=== PATIENT | female | born 1955 | race Caucasian/White ===

== ENCOUNTER 2019-11-10 10:32 | Outpatient (CLI) | payer MEDICARE, OTHER ==
--- NOTE | 2019-11-10 11:35 | ULT ---
Pelvic sonogram transabdominal and transvaginal imaging with duplex evaluation HISTORY: Pelvic pain. Findings urinary bladder is incompletely distended. Uterus has a heterogeneous echotexture and is 5.1 cm in length. Endometrium is 0.3 cm. Minimal free fluid. Right ovary is 1.5 cm length and left is 1.2 cm. Each has a normal appearance with good color and spe ctral Doppler flow. IMPRESSION : No abnormalities are demonstrated.
== END 2019-11-10 10:33 | disposition home or self-care (01) ==
LOC: BICULT 10:32
PROVIDERS: ATTEND Family Medicine
DX: R10.2 Pelvic and perineal pain (principal)
CPT/HCPCS: 76856

== ENCOUNTER 2020-03-01 12:52 | Observation (INO) | payer MEDICARE, OTHER ==
[2020-03-01] MEDS ORDERED: Albuterol 200 PUFF (6.7GM INHALER) INH PRN (15:02)
[2020-03-01 15:07] VITALS: BMI 34.0
[2020-03-01 16:20] LABS: Troponin I 0.022 ng/mL (< 0.028)
--- NOTE | 2020-03-01 17:16 | PDOC.HHP ---
Hospitalist HPI - History of Present Illness chest pain History of Present Illness: Ms. Mcmanus is a 64-year-old female with a past medical history of ulcerative colitis, obstructive sleep apnea, chronic bronchitis, anxiety depression, type 2 diabetes mellitus, remote history of breast cancer status post resection/radiation, GERD, hypertension who presented to [facility] for 2 weeks of shortness of breath associated with chest tightness. Patient reports that she presented to the ED because she is unable to secure an appointment with her primary care provider and that she noticed over the past 2 weeks she has been fatigued, and dyspneic on exertion walking short distances around her house. Chest tightness will last for minutes then resolve. Worse with exertion, none at rest. No changes with position. Patient reports family history of significant cardiac disease in her father with multiple MIs, and her brother who passed at age 58 of an FL. Patient reports history of smoking, which she quit 20 years ago. No history of prior cardiac conditions. Patient presented to [facility] where EKG showed nonspecific changes, initial troponin 0 0.019, BNP 41.2, BUN/CR 26/1.10. WBC 12.2, H/H 10.1/30.7, platelet 98. Chest x-ray with no acute abnormalities. Patient given ASA and transferred to hospital service at [facility]. Hospitalist ROS - Review of Systems Constitutional: reports: weakness, malaise. denies: fever, chills, sweats, other Eyes: denies: pain, vision change, conjunctivae inflammation, eyelid inflammation, redness, other ENT: denies: ear pain, ear discharge, nose pain, nose discharge, nose congestion, mouth pain, mouth swelling, throat pain, throat swelling, other Respiratory: reports: shortness of breath, SOB with excertion. denies: cough, dry, hemoptysis, pleuritic pain, sputum, wheezing, other Cardiovascular: reports: chest pain, orthopnea. denies: palpitations, paroxysmal noc. dyspnea, edema, light headedness Gastrointestinal: denies: nausea, vomiting, abdominal pain, diarrhea, constipation, melena, hematochezia, other Genitourinary: denies: dysuria, frequency, incontinence, hematuria, retention, other Musculoskeletal: denies: neck pain, shoulder pain, arm pain, back pain, hand pain, leg pain, foot pain, other Skin: denies: rash, lesions, prakash, bruising, other Neurological: denies: weakness, numbness, incoordination, change in speech, confusion, seizures, other - Medication Medications: Home medications include: Metoprolol Affect sore Losartan Sulfasalazine Lansoprazole Cetirizine Bisoprolol hctz Ascorbic acid Cyclobenzaprine Atorvastatin Fluticasone No known drug allergies Hospitalist History - Past Medical History Other Medical History: Past medical history includes Hypertension Diabetes Ulcerative colitis Obstructive sleep apnea Anxiety/depression Breast cancer, remote - Past Surgical History Other Surgical History: Past surgical history includes Lumpectomy Bilateral total knee replacements Spine surgery Bilateral corneal replacements - Family History Other Family History: Family history significant for cardiac disease in father with multiple MIs, and brother who passed of FL at age 58. - Social History Smoking Status: Former smoker Tobacco Type: cigarettes Alcohol: reports: Rare Drugs: reports: none Living Situation: With Family Activity level: independent ambulation - Exam General Appearance: NAD, awake alert Eye: PERRL, anicteric sclera ENT: normocephalic atraumatic, no oropharyngeal lesions, moist mucosa Neck: supple, symmetric, no JVD, no thyromegaly, no lymphadenopathy, no carotid bruit Heart: RRR, no murmur, no gallops, no rubs, normal peripheral pulses Respiratory: CTAB, no wheezes, no rales, no ronchi, normal chest expansion, no tachypnea, normal percussion Gastrointestinal: soft, non-tender, non-distended, normal bowel sounds, no palpable masses, no hepatomegaly, no splenomegaly, no bruit Extremities: no cyanosis, no clubbing, no edema Skin: normal turgor, no lesions, no rashes Neurological: cranial nerve grossly intact, normal sensation to touch, no weakness, no focal deficits, no new deficit Musculoskeletal: normal tone, normal strength, no muscle wasting Psychiatric: normal affect, normal behavior, A&O x 3 Hospitalist Results - Labs Result Diagrams: 03/02/20 04:48 03/02/20 04:48 Lab results: Troponin I 0.022 ng/mL (< 0.028) 03/01/20 15:46 Hospitalist H&P A/P - Plan Plan: Chest pain 64-year-old female with possible history of breast cancer, UC, type 2 diabetes mellitus, COPD who presents with 2 weeks of intermittent chest tightness associated with shortness of breath. Patient denies radiation, changes with movement. Initial EKG showed nonischemic changes, initial troponin 0 0.019. BNP 41.2. Chest x-ray no acute findings. Given patient's former smoking history, significant family history, age, gender, and history of type 2 diabetes will admit for chest pain rule out. Patient reports her most recent stress test was more than 5 years ago. Received ASA in ED. We will keep patient n.p.o. for stress test in a.m. Plan Trend troponin Telemetry monitoring Stress test in a.m., n.p.o. at midnight -ASA, statin Shortness of breath Patient reports 2-week history of dyspnea on exertion associated with fatigue and malaise. Patient reports she was tested for Covid by her primary care provider approximately 2 weeks ago and was negative. She denies any cough or upper respiratory symptoms. Denies any known exposure to Covid. Chest x-ray with no acute findings. White blood cell mildly elevated at 12.2. Patient received DuoNeb treatment at [facility] which she reports improved her shortness of breath/chest pain. Patient currently comfortable in bed saturating 97% on room air. Plan DuoNebs as needed Covid pending, RVP Closely monitor respiratory status Anemia Patient anemic on presentation to 10.1. Prior hemoglobin in October 20192013.5. Patient denies any blood in her stools or black or tarry stools. Reports recent colonoscopy approximately 2 months ago, which was normal, and plans for possible EGD secondary to GERD. Patient denies any dizziness, lightheadedness. Denies any new medications. Plan Trend H&H Fecal occult blood testing Iron studies, vitamin B12, folate Smear review Thrombocytopenia Patient thrombocytopenic to 98. Platelet count formally 207 in October 2019. Denies any new medications. Does take sulfasalazine for her ulcerative colitis which she has taken for decades. Denies any bruising, abnormal bleeding events/mucocutaneous bleeding. Denies fever, chills, night-sweats or unexplained weight loss. Plan Smear review -TSH, PT/INR Continue to monitor COPD History of COPD not on home O2. Does have home albuterol inhaler. Continue plan as above under shortness of breath. Type 2 diabetes mellitus History of type 2 diabetes on metformin. Will hold Metformin during admission and monitor blood sugars. Plan [facility] glucose checks -Hypoglycemia protocol as needed Hypertension Continue home bisoprolol/hydrochlorothiazide Hyperlipidemia Continue home atorvastatin Ulcerative colitis Continue home sulfasalazine. DVT prophylaxis: SCDs Full code Case discussed with attending physician, Dr. Matt.
[2020-03-01] MEDS ORDERED: Acetaminophen 325 MG TAB PO PRN (17:53)
[2020-03-01] MEDS ORDERED: Dextrose 5% in Water 1,000 ML IV PRN (17:59)
[2020-03-01] MEDS ORDERED: Insulin Regular 300 UNITS/3 ML VIAL SC PRN (17:59)
[2020-03-01] MEDS ORDERED: Dextrose 50% Abboject 50 ML SYRINGE SLOW IVP PRN (17:59)
[2020-03-01 18:38] LABS: Magnesium 1.8 mg/dL (1.6-2.6)
[2020-03-01 19:02] LABS: Anisocytosis MODERATE=16-30 cells (100X) (0-5/hpf); Band 24 % (5-11); Hemoglobin 8.9 g/dL (12.0-16.0); Lymphocytes 37 % (21-51); MDiff Complete? YES; Macrocytosis SLIGHT = 6-15 cells (100X) (0-5/hpf); Mean Corpuscular HGB CONC 34.4 g/dL (32.0-36.0); Mean Corpuscular Hemoglobin 36.5 pg (27.0-31.0); Mean Platelet Volume 6.9 fL (7.4-10.4); Metamyelocyte 1 % (0-0); Monocytes 9 % (0-10); Myelocyte 1 % (0-0); Neutrophil 26 % (42-75); Nucleated RBC 2 % (0); Platelet Count 86 thou/uL (130-400); Platelet Morphology Comment Appears Decreased; Polychromasia MODERATE = 3-4 cells (100X) (0-2/hpf); RBC Distribution Width 15.7 % (11.5-14.5); Reactive Lymphocytes 2 % (0-10); Red Blood Cell (RBC) Count 2.43 mill/uL (4.20-5.40); Tear Drops SLIGHT = 2-5 cells (100X) (0-1/hpf)
[2020-03-01 19:39] LABS: Troponin I 0.017 ng/mL (< 0.028)
[2020-03-01] MEDS ORDERED: Atorvastatin Calcium 40 MG TAB PO SCH (21:00)
[2020-03-01] MEDS: sulfaSALAzine 500 MG TAB PO SCH (21:06)
[2020-03-01] MEDS ORDERED: Losartan 25 MG TAB PO SCH (23:15)
[2020-03-02 05:44] LABS: ALT (SGPT) 50 U/L (8-55); AST (SGOT) 31 U/L (5-34); Albumin 4.1 g/dL (3.4-4.8); Alkaline Phosphatase 61 U/L (40-110); Anion Gap 15 mmol/L (10-20); BUN (Urea Nitrogen) 20 mg/dL (9.8-20.1); Calc. Creatinine Clearance 90 mL/min (70-130); Calcium 9.2 mg/dL (7.8-10.44); Carbon Dioxide 23 mmol/L (23-31); Chloride 106 mmol/L (98-107); Estimated GFR-MDRD 58; Globulin 2.6 g/dL (2.4-3.5); Glucose 108 mg/dL (80-115); Potassium 3.8 mmol/L (3.5-5.1); Protein, Total 6.7 g/dL (6.0-8.3); Sodium 140 mmol/L (136-145)
[2020-03-02 06:02] LABS: Anisocytosis SLIGHT = 6-15 cells (100X) (0-5/hpf); Band 17 % (5-11); Eosinophils 3 % (0-10); Hemoglobin 9.6 g/dL (12.0-16.0); Lymphocytes 26 % (21-51); MDiff Complete? YES; Mean Corpuscular Hemoglobin 36.2 pg (27.0-31.0); Mean Platelet Volume 7.2 fL (7.4-10.4); Monocytes 13 % (0-10); Myelocyte 3 % (0-0); Neutrophil 38 % (42-75); Nucleated RBC 6 % (0); Platelet Count 90 thou/uL (130-400); Platelet Morphology Comment Appears Decreased; RBC Distribution Width 15.8 % (11.5-14.5); Red Blood Cell (RBC) Count 2.66 mill/uL (4.20-5.40); White Blood Cell (WBC) Count 11.5 thou/uL (4.8-10.8)
[2020-03-02] MEDS: Bisoprolol Fumarate/HCTZ 5 mg/6.25 mg Tablet PO SCH ×2 (07:38→11:54)
[2020-03-02] MEDS: sulfaSALAzine 500 MG TAB PO SCH (07:50)
[2020-03-02] MEDS ORDERED: FLU VACC QS2020-21(65YR UP)/PF 240 MCG/0.7 ML SYRINGE IM ONE (09:00)
[2020-03-02] MEDS ORDERED: Losartan 25 MG TAB PO SCH ×2 (09:00→21:00)
[2020-03-02] MEDS ORDERED: Loratadine 10 MG TAB PO SCH (09:00)
[2020-03-02] MEDS ORDERED: Fluticasone Propionate Nasal Spray 16 gm Bottle NASAL SCH (09:00)
[2020-03-02] MEDS ORDERED: Venlafaxine HCl XR 150 MG CAP PO SCH (09:00)
[2020-03-02] MEDS ORDERED: Aspirin 325 mg Enteric Coated Tablet PO SCH (09:00)
[2020-03-02] MEDS ORDERED: Regadenoson 0.4 MG/5 ML SYRINGE ONE (09:39)
[2020-03-02 11:08] LABS: SARS-CoV-2 MS2 Positive; SARS-CoV-2 N Gene Negative; SARS-CoV-2 S Gene Negative; SARS-CoV-2 by NAA Not Detected (NotDetected); SARS-CoV-2 orf1ab Negative
--- NOTE | 2020-03-02 13:02 | NM ---
Exam: Nuclear medicine cardiac stress HISTORY: Chest pain Comparison none TECHNIQUE: Patient was ministered 32.10 mCi of technetium 99m sestamibi. FINDINGS: Homogeneous distribution of the radiotracer in the left ventricle End-diastolic volume is 115 mL End-systolic volume is 50 mL Cardiac gating: Normal wall motion and thickening. 56% ejection fraction IMPRESSION: 1. Homogeneous distribution of the radiotracer left ventricle. 2. 56% ejection fraction.
[2020-03-02 15:50] VITALS: BP 105/58; TEMP 98.5
--- NOTE | 2020-03-02 19:33 | PDOC.DS.DS ---
Provider - Provider Date of Admission: 03/01/20 12:52 Admitting Provider: Michael Matt MD Primary Care Physician: Bailee Lagos DO Course - Hospital Course Hospital Course: Patient is a 64-year-old female who presented to the hospital with some shortness of breath. She had some chest tightness associated with this. This had been going on for several days. Her initial work-up showed no evidence of acute ischemia. Troponin was negative. She was subsequently placed in observation status. She had serial cardiac isoenzymes that were negative. She underwent a stress test which showed no evidence of reversible ischemia and had a normal ejection fraction. She reported that she had significant improvement overall with the use of the nebulizers. She thought they were very helpful. She did have a [id number] smoking history. Patient was also noted to have some blood dyscrasias. She had an elevated white count that was minimal. She was also anemic and thrombocytopenic. She has a history of ulcerative colitis and was on sulfasalazine for that. I discussed the case with Dr. Cruz her hardwood floor finisher. We will stop the sulfasalazine and she will follow her up in her office next week. Of note her Covid and respiratory viral panel were all negative. Resuscitation Status: 03/01/20 17:53 Resuscitation Status Routine Co-Sign Provider: Resuscitation Status: FULL: Full Resuscitation - Labs Lab Results: 03/02/20 04:48 03/02/20 04:48 Abnormal Lab Results - Last 48 hrs 03/01/20 17:57: % Saturation 54 H 03/01/20 18:09: WBC 11.0 H, RBC 2.43 L, Hgb 8.9 L, Hct 25.8 L, MCV 106.0 H, MCH 36.5 H, RDW 15.7 H, Plt Count 86 L, MPV 6.9 L, Neutrophils % (Manual) 26 L, Band Neuts % (Manual) 24 H, Metamyelocytes % (Man) 1 H, Myelocytes % 1 H, Nucleated RBCs # (Man) 2 H, Plt Morphology Comment Appears Decreased L, Polychromasia MODERATE = 3-4 cells H, Anisocytosis MODERATE=16-30 cells H 03/02/20 04:48: WBC 11.5 H, RBC 2.66 L, Hgb 9.6 L, Hct 28.3 L, MCV 106.0 H, MCH 36.2 H, RDW 15.8 H, Plt Count 90 L, MPV 7.2 L, Neutrophils % (Manual) 38 L, Band Neuts % (Manual) 17 H, Monocytes % (Manual) 13 H, Myelocytes % 3 H, Nucleated RBCs # (Man) 6 H, Plt Morphology Comment Appears Decreased L Microbiology - Entire Visit 03/01/20 23:30 Nasopharyngeal swab Respiratory Virus Panel (PCR) - Final - Physical Exam Vitals: Vital Signs (12 hours) Temp Pulse Resp BP Pulse Ox 03/02/20 15:43 98.5 F 72 16 105/58 L 96 03/02/20 13:41 65 20 98 03/02/20 12:00 98.2 F 66 18 143/70 H 98 Weight Weight 217 lb 4.8 oz Physical Exam: The patient was seen and examined on the day of discharge. Problem - Problem (1) Dyspnea Code(s): R06.00 - DYSPNEA, UNSPECIFIED Status: Acute (2) COPD (chronic obstructive pulmonary disease) Status: Acute (3) Chest pain Code(s): R07.9 - CHEST PAIN, UNSPECIFIED Status: Acute (4) Ulcerative colitis Code(s): K51.90 - ULCERATIVE COLITIS, UNSPECIFIED, WITHOUT COMPLICATIONS Status: Acute (5) Anemia Code(s): D64.9 - ANEMIA, UNSPECIFIED Status: Acute (6) Thrombocytopenia Code(s): D69.6 - THROMBOCYTOPENIA, UNSPECIFIED Status: Acute (7) Diabetes mellitus Code(s): E11.9 - TYPE 2 DIABETES MELLITUS WITHOUT COMPLICATIONS Status: Acute (8) Hypertension Code(s): I10 - ESSENTIAL (PRIMARY) HYPERTENSION Status: Acute Plan - Discharge Medications Prescriptions: RX: Ipratropium/Albuterol Sulfate [DuoNeb] 3 ml NEB [id number] #30 neb RX: Nebulizer [Compact Compressor Nebulizer] 1 each ASDIR #1 kit Home Medications: Medication Instructions Recorded Confirmed Type RX: Ascorbic Acid [Vitamin C] 500 mg PO DAILY 03/01/20 03/01/20 History RX: Atorvastatin Calcium [Lipitor] 40 mg PO HS 03/01/20 03/01/20 History RX: Bisoprolol/Hydrochlorothiazide 1 tab PO DAILY 03/01/20 03/01/20 History [Bisoprolol-Hctz 5-6.25 mg Tab] RX: Cetirizine HCl [Zyrtec] 10 mg PO DAILY 03/01/20 03/01/20 History RX: Cyclobenzaprine [Flexeril] 10 mg PO PRN PRN 03/01/20 03/01/20 History RX: Fluticasone Propionate 1 spray EA NARE DAILY PRN 03/01/20 03/01/20 History [Flonase Nasal [place]] RX: HYDROcodone Bit/APAP 10325 1 tab PO BID 03/01/20 03/01/20 History [[place]] RX: Ketotifen Fumarate [[place]] 1 drop EA EYE PRN PRN 03/01/20 03/01/20 History RX: Lansoprazole 30 mg PO DAILY 03/01/20 03/01/20 History RX: Losartan [Cozaar] 25 mg PO HS 03/01/20 03/01/20 History RX: Multivit-Min/FA/Lycopen/Lutein 1 tablet PO DAILY 03/01/20 03/01/20 History [Complete Multi 50+ Tablet] RX: Polyvinyl Alcohol/Povidone 1 drop EA EYE PRN PRN 03/01/20 03/01/20 History [[place] Eye Drop] RX: Psyllium Husk [Metamucil] 5 tab PO DAILY 03/01/20 03/01/20 History RX: Venlafaxine HCl [Effexor XR] 150 mg PO DAILY 03/01/20 03/01/20 History RX: metFORMIN [Glucophage] 500 mg PO BID-WM 03/01/20 03/01/20 History RX: Aspirin [Ecotrin Regular 325 mg PO DAILY tab 03/02/20 Rx Strength] RX: Ipratropium/Albuterol Sulfate 3 ml NEB [id number] #30 neb 03/02/20 Rx [DuoNeb] RX: Nebulizer [Compact Compressor 1 each MC ASDIR #1 kit 03/02/20 Rx Nebulizer] Allergies: No Known Allergies Allergy (Verified 03/01/20 16:57) - Discharge Instructions Activity:: Activity as Tolerated Nourishment:: No Restrictions - Follow up Plan Referrals: Lauren Cruz MD [Active] - 7 Days (Dr. Cruz's office will call to arrange an appointment next week. ) Bailee Lagos DO [Primary Care Provider] - 7 Days Disposition: HOME Quality - Care Measures CORE MEASURES:: N/A
== END 2020-03-02 18:30 | disposition home or self-care (01) ==
LOC: 2SW 12:52
PROVIDERS: ADMIT Student in an Organized Health Care Education/Training Program; ATTEND Internal Medicine
DX: R07.89 Other chest pain (principal); R06.02 Shortness of breath; J44.9 Chronic obstructive pulmonary disease, unspecified; E11.9 Type 2 diabetes mellitus without complications; I10 Essential (primary) hypertension; K51.90 Ulcerative colitis, unspecified, without complications; D64.9 Anemia, unspecified; D69.6 Thrombocytopenia, unspecified; E78.5 Hyperlipidemia, unspecified; Z20.828 Contact with and (suspected) exposure to other viral communicable diseases; Z79.84 Long term (current) use of oral hypoglycemic drugs; Z79.899 Other long term (current) drug therapy
CPT/HCPCS: 78452; 80053; 82607; 82746; 82962 ×2; 83540; 83550; 83735; 84443; 84484 ×3; 85007; 85025; 85027; 87633; 93017; 94640 ×3; 94760; A9500; G0378 ×2; U0003; 36415; 36416; 85060; 87635; J2785; J7620

== ENCOUNTER 2020-07-15 20:13 | Emergency (ER) | payer MEDICARE, OTHER ==
[~2020-07-15 20:13] MED LIST: Iopamidol-370 76% 500 ML 1 ML ONE
[2020-07-15 21:18] LABS: Anion Gap 16 mmol/L (10-20); BUN (Urea Nitrogen) 17 mg/dL (9.8-20.1); Calc. Creatinine Clearance 0 mL/min (70-130); Carbon Dioxide 24 mmol/L (23-31); Chloride 103 mmol/L (98-107); Glucose 177 mg/dL (80-115); Potassium 3.3 mmol/L (3.5-5.1); Sodium 140 mmol/L (136-145)
[2020-07-15 22:09] LABS: Band 1 % (5-11); Eosinophils 1 % (0-10); Hemoglobin 10.2 g/dL (12.0-16.0); Lymphocytes 9 % (21-51); MDiff Complete? YES; Mean Corpuscular Hemoglobin 37.6 pg (27.0-31.0); Mean Platelet Volume 4.3 fL (7.4-10.4); Metamyelocyte 2 % (0-0); Monocytes 12 % (0-10); Myelocyte 4 % (0-0); Neutrophil 4 % (42-75); Nucleated RBC 1 % (0); Platelet Count 71 thou/uL (130-400); Platelet Morphology Comment Appears Decreased; RBC Distribution Width 12.8 % (11.5-14.5); Reactive Lymphocytes 3 % (0-10); Red Blood Cell (RBC) Count 2.72 mill/uL (4.20-5.40); Reflex for Review?? YES
[2020-07-15 22:32] LABS: ALT (SGPT) 33 U/L (8-55); AST (SGOT) 35 U/L (5-34); Albumin 4.1 g/dL (3.4-4.8); Alkaline Phosphatase 68 U/L (40-110); Bilirubin, Direct 0.3 mg/dL (0.1-0.3); Bilirubin, Total 0.5 mg/dL (0.2-1.2); Protein, Total 6.5 g/dL (5.8-8.1); Uric Acid 9.4 mg/dL (2.6-6.0)
[2020-07-15 22:39] LABS: Magnesium 1.3 mg/dL (1.6-2.6); Phosphorus 3.4 mg/dL (2.3-4.7)
[2020-07-15 22:46] LABS: Reticulocyte Count 1.5 % (0.5-1.5)
[2020-07-15 22:47] LABS: Fibrinogen 275 mg/dL (253-463)
[2020-07-15 22:48] LABS: INR-International Normal Ratio 1.3; PTT 30.6 sec (22.9-36.1); Prothrombin Time 16.2 sec (12.0-14.7)
[2020-07-15 22:56] LABS: D-Dimer Test 17.61 *mcg/mL (0.27-0.43)
[2020-07-15 23:28] LABS: FSP-Qualitative ABNORMAL (Normal)
[2020-07-15 23:38] LABS: FSP-Semiquantitative >=40 & <80 mcg/mL (Less than 5)
[2020-07-16 00:27] LABS: SARS-CoV-2 NAA Rapid Test Not Detected (NotDetected)
[2020-07-16 06:44] LABS: Differential Comment Blast-Like Cell(s)
== END 2020-07-16 02:25 | disposition short-term general hospital (02) ==
LOC: ERS 20:13
DX: C95.00 Acute leukemia of unspecified cell type not having achieved remission (principal); E27.8 Other specified disorders of adrenal gland; M79.89 Other specified soft tissue disorders; I10 Essential (primary) hypertension; E11.9 Type 2 diabetes mellitus without complications; E78.00 Pure hypercholesterolemia, unspecified; G47.30 Sleep apnea, unspecified; J42 Unspecified chronic bronchitis; D46.9 Myelodysplastic syndrome, unspecified; Z20.822 Contact with and (suspected) exposure to COVID-19; K76.0 Fatty (change of) liver, not elsewhere classified; Z79.84 Long term (current) use of oral hypoglycemic drugs; Z79.899 Other long term (current) drug therapy; Z87.891 Personal history of nicotine dependence; M79.605 Pain in left leg; R60.9 Edema, unspecified
CPT/HCPCS: 71275; 80048; 80076; 83010; 83615; 83735; 83880; 84100; 84550; 85025; 85046; 85362; 85379; 85384; 85610; 85730; 86140; 93005; 93971; 99285; U0002; 36415; 85060; Q9967